=== PATIENT | male | born 1955 | race Caucasian/White ===

== ENCOUNTER → 2021-10-07 | Outpatient (CLI) | payer OTHER ==
--- NOTE | 2021-10-08 07:39 | CT ---
EXAMINATION TYPE: CT urogram wo/w con DATE OF EXAM: 10/07/2021 COMPARISON: None HISTORY: hematuria CT DLP: 6150.7 mGycm CONTRAST: Performed and without and with IV Contrast, patient injected with 100 mL of Isovue 300. CT Urography was performed with unenhanced followed by enhanced images of the kidneys, ureters and ur inary bladder. Delayed images were obtained. 3d reconstruction was performed at a separate work sta tion. FINDINGS: KIDNEYS/BLADDER: No hydronephrosis. No nephrolithiasis. No distinct lytic renal mass. No cortical cyst right mid kidney measures 2.0 cm. Additional 1 cm cyst lower pole left kidney. Urinary bladder g rossly unremarkable. LUNG BASES-: No visible nodule. No infiltrate. LIVER/GB: There is evidence of hepatic steatosis. No calcified gallstones. No space occupying hepa tic lesion. Biliary tree is of normal caliber. PANCREAS: No inflammation. No distinct mass. SPLEEN: No splenic enlargement. No lesion seen. ADRENALS: No nodule. No thickening. BOWEL: Normal appendix. Normal bowel caliber. No inflammation. GENITAL ORGANS: No gross abnormality. LYMPH NODES: No greater than 1cm abdominal or pelvic lymph nodes are appreciated. AORTA: No significant abnormality. OSSEOUS STRUCTURES: No significant abnormality is seen. OTHER: No significant additional abnormality is seen. IMPRESSION: 1. Renal cortical cyst. Otherwise unremarkable study. 2. Hepatic steatosis.
== END | disposition home or self-care (01) ==
LOC: RADCTMAIN 16:23
PROVIDERS: ATTEND Urology
DX: N28.1 Cyst of kidney, acquired (principal); K76.0 Fatty (change of) liver, not elsewhere classified
CPT/HCPCS: 74178; 74400; Q9967

== ENCOUNTER 2021-10-11 10:22 | Day surgery (SDC) | payer OTHER ==
[2021-10-10 13:10] VITALS: BMI 41.2
[~2021-10-11 10:22] MED LIST: LACTATED RINGERS 1,000 ML IV SCH
[2021-10-11] MEDS ORDERED: LIDOCAINE 1% (10MG/ML) FOR IV START INTRADERMA ONE (11:05)
[2021-10-11 11:08] VITALS: RESP 18; TEMP 98.2
[2021-10-11] MEDS ORDERED: PROPOFOL 10 MG/ML 20 ML VIAL IV ONE (11:09)
[2021-10-11 11:10] LABS: Glucose,Whole Blood 140 mg/dL (75-99)
--- NOTE | 2021-10-11 11:28 | P.PCN ---
Date of Procedure: 10/11/21 Procedure(s) Performed: BRIEF HISTORY: Patient is a 65-year-old pleasant white male scheduled for an elective colonoscopy as a part of screening for a colorectal neoplasia. PROCEDURE PERFORMED: Colonoscopy snare polypectomy. PREOPERATIVE DIAGNOSIS: Screening for colon cancer. IV sedation per Anesthesia. PROCEDURE: After informed consent was obtained, the patient, was brought into the endoscopy unit. IV sedation was administered by Anesthesia under continuous monitoring. Digital rectal examination was normal. Initially the Olympus CF-160 flexible video colonoscope was then inserted in the rectum, gradually advanced into the cecum without any difficulty. Careful examination was performed as the scope was gradually being withdrawn. Ileocecal valve and the appendiceal orifice were visualized and appeared normal. Prep was excellent. Mucosa of the cecum, normal. The proximal ascending colon there was a 1.5 cm broad-based polyp that was removed by snare polypectomy. Rest of the ascending colon, transverse colon, descending colon, sigmoid colon, and rectum appeared normal. Retroflexion was performed in the rectum and no lesions were seen. The patient tolerated the procedure well. IMPRESSION: 1.5 cm broad-based ascending colon polyp status post polypectomy Rest of the colon appeared normal RECOMMENDATIONS: Findings of this examination were discussed with the patient .as well as a his family. He was advised to follow with the biopsy results. If the biopsy reveals adenoma he can have a repeat colonoscopy in 3 years
[2021-10-11 11:49] VITALS: BP 140/71; PULSE 55
== END 2021-10-11 12:04 | disposition home or self-care (01) ==
LOC: ORWHC2ENDO 10:22
PROVIDERS: ATTEND Internal Medicine Gastroenterology
DX: Z12.11 Encounter for screening for malignant neoplasm of colon (principal); D12.2 Benign neoplasm of ascending colon; Z79.899 Other long term (current) drug therapy; I10 Essential (primary) hypertension
CPT/HCPCS: 88305; 45385; J2704

== ENCOUNTER → 2023-03-02 | Outpatient (CLI) | payer MEDICARE ==
--- NOTE | 2023-03-02 08:40 | US ---
EXAMINATION TYPE: US liver DATE OF EXAM: 03/02/2023 COMPARISON: NONE CLINICAL INDICATION: Male, 67 years old with history of R74.01 ELEVATED TRANSMINASE LEVEL; elevated l iver enzymes limited due to body habitus. TECHNIQUE: Multiple sonographic images of the right upper quadrant are obtained. FINDINGS: EXAM MEASUREMENTS: Liver Length: 19.5 cm Gallbladder Wall: .2 cm CBD: .5 cm Right Kidney: 12.3 x 5.3 x 4.5 cm [employer] NOTES: Pancreas: Obscured by bowel gas Liver: Increased attenuation Gallbladder: No stones seen Evidence for sonographic Campbell's sign: No CBD: wnl Right Kidney: No hydronephrosis or masses seen IMPRESSION: Hepatic steatosis.
== END | disposition home or self-care (01) ==
LOC: RADUSWWP 07:57
PROVIDERS: ATTEND Internal Medicine
DX: K76.0 Fatty (change of) liver, not elsewhere classified (principal); R74.01 Elevation of levels of liver transaminase levels
CPT/HCPCS: 76705

== ENCOUNTER → 2024-01-18 | Outpatient (CLI) | payer MEDICARE, OTHER ==
--- NOTE | 2024-02-01 15:49 | CT ---
EXAMINATION TYPE: CT abdomen pelvis wo con CT DLP: 1558.90 mGycm, Automated exposure control for dose reduction was used. DATE OF EXAM: 01/18/2024 3:14 PM COMPARISON: CT urogram from 10/07/2021. CLINICAL INDICATION:Male, 68 years old with history of R31.0 GROSS HEMATURIA; GROSS HEMATURIA TECHNIQUE: Axial CT of the abdomen and pelvis. Sagittal and coronal reformats were created on a [employer] workstation. Contrast used: mL of , (none if empty) Oral contrast used: without Oral Contrast (none if empty) FINDINGS: LOWER CHEST: Heart size upper normal. No basilar lung infiltrate. Small sliding hiatal hernia. ABDOMEN LIVER: Right lobe mildly enlarged at 18.6 cm. Otherwise unremarkable unenhanced appearance. GALLBLADDER AND BILE DUCTS: Unremarkable gallbladder. No biliary ductal dilatation. PANCREAS: Fatty infiltrated without acute finding. SPLEEN: Unremarkable. ADRENAL GLANDS: Unremarkable. KIDNEYS AND URETERS: Stable unenhanced appearance of the kidneys. Vague hypodense nodules correspond to previously identified cysts. No masslike contour deformity. No evidence of renal/ureteral calculi or hydronephrosis. PELVIS BLADDER: Mildly distended with indentation along its base due to the prostate. REPRODUCTIVE: Prostate appears mildly enlarged measuring roughly 5.2 cm transverse and there are mode rate parenchymal calcifications. Pelvic phleboliths. ABDOMEN & PELVIS STOMACH AND BOWEL: Stomach and small bowel unremarkable. No evidence of obstruction. Normal appendix. Mild to moderate stool throughout the colon. Several diverticula in the distal aspects of the colon without evidence of diverticulitis. PERITONEUM/RETROPERITONEUM: No evidence of pneumoperitoneum or free fluid. VASCULATURE: Mild to moderate atherosclerotic calcifications are present throughout the abdominal aor ta and its branches. No evidence of aortic aneurysm. LYMPH NODES: No enlarged nodes by CT size criteria. SOFT TISSUE/ABDOMINAL WALL: No acute abnormalities. Small to moderate-sized bilateral fat containing inguinal hernias. MUSCULOSKELETAL: No acute osseous abnormalities. Moderate disc degeneration changes are present throu ghout the thoracolumbar spine. Grade 1 anterolisthesis L4 on L5, appears degenerative. There appears to be severe canal stenosis at L4-L5, with slightly milder stenosis L3-L4 and L2-L3. Moderate to sev ere bilateral neural foraminal stenosis L4-L5 and L5-S1. There may be a component of DISH with flowin g syndesmophytes seen in the lower thoracic/upper lumbar region. IMPRESSION: 1. No urinary tract calculi or hydronephrosis. 2. Mild prostatomegaly. 3. Degenerative changes of the lumbar spine with moderate/severe spinal canal stenoses greatest at L 4-L5. 4. Bilateral fat-containing inguinal hernias. 5. Colonic diverticula are present, without signs of inflammation to suggest diverticulitis.
== END | disposition home or self-care (01) ==
LOC: RADCTMAIN 14:56
PROVIDERS: ATTEND Internal Medicine
DX: M47.816 Spondylosis without myelopathy or radiculopathy, lumbar region (principal); M48.061 Spinal stenosis, lumbar region without neurogenic claudication; K57.30 Diverticulosis of large intestine without perforation or abscess without bleeding; K40.20 Bilateral inguinal hernia, without obstruction or gangrene, not specified as recurrent; N40.0 Benign prostatic hyperplasia without lower urinary tract symptoms
CPT/HCPCS: 74176